=== PATIENT | male | born 1995 | race Two or more races ===

== ENCOUNTER 2017-02-16 22:20 | Emergency (ER) | payer SELFPAY ==
[~2017-02-16] VITALS: Ht 167.6 cm; Wt 60.0 kg
[2017-02-17] MEDS ORDERED: SODIUM CHLORIDE 0.9% 1,000 ML IV ONE ×2 (00:36→02:22)
[2017-02-17] MEDS ORDERED: ONDANSETRON HCL 4MG/2ML VIAL IV STA (00:36)
[2017-02-17 00:54] LABS: HEMATOCRIT. 41.8 % (42.0-52.0); MEAN CORPUSCULAR HEMOGLOBIN 28.9 pg (28.0-32.0); MEAN CORPUSCULAR VOLUME 86.3 fL (80.0-94.0); MEAN PLATELET VOLUME 7.7 fl (7.4-10.4); PLATELET 314 x1000/uL (130-400); RED BLOOD CELL COUNT 4.84 mill/uL (4.7-6.1); RED CELL DISTRIBUTION WIDTH 13.4 % (11.6-14.6)
[2017-02-17 01:01] LABS: CHLORIDE 104 mEq/L (98-107)
[2017-02-17 01:06] LABS: AMMONIA < 25 uMol/L (<32)
[2017-02-17 01:17] LABS: CARBON DIOXIDE 28 mEq/L (21-32); ETHANOL BLOOD < 10 mg/dL
[2017-02-17 01:31] LABS: PLATELET ESTIMATE NORMAL
[2017-02-17 03:36] LABS: *AMPHETAMINES SCREEN URINE NEGATIVE (NEGATIVE); *BARBITURATES SCREEN URINE NEGATIVE (NEGATIVE); *BENZODIAZEPINES SCREEN URINE NEGATIVE (NEGATIVE); *COCAINE SCREEN URINE NEGATIVE (NEGATIVE); CANNABINOID URINE SCREEN PRESUMTIVE POSITIVE (NEGATIVE); METHADONE URINE SCREEN NEGATIVE (NEGATIVE); OPIATES URINE SCREEN NEGATIVE (NEGATIVE); PHENCYCLIDINE URINE SCREEN NEGATIVE (NEGATIVE)
[2017-02-17 03:54] VITALS: BP 122/66
== END 2017-02-17 03:56 | disposition home or self-care (01) ==
LOC: ER 22:20
DX: S09.90XA Unspecified injury of head, initial encounter (principal); R55 Syncope and collapse; X58.XXXA Exposure to other specified factors, initial encounter; Y93.89 Activity, other specified; Y92.89 Other specified places as the place of occurrence of the external cause; Y99.8 Other external cause status
CPT/HCPCS: 36415; 70450; 80053; 80305; 82140; 84443; 85025; 93005; 96361; 96374; 99285; G0482; J2405; J7030; Z7610